=== PATIENT | female | born 1965 | race Caucasian/White ===

== ENCOUNTER 2018-03-25 15:52 | Emergency (ER) | payer SELFPAY ==
[~2018-03-25] VITALS: Ht 160 cm; Wt 75.5 kg
[~2018-03-25 15:52] MED LIST: FLEXERIL10 MG PO; LORTAB 5/500 501 TAB PO; NO HOME MEDICATIONS
[2018-03-25 15:55] VITALS: TEMP 98.2
[2018-03-25] MEDS ORDERED: VOLTAREN 75 DR75 MG PO (17:42)
[2018-03-25 18:09] VITALS: BP 145/91; PULSE 58
== END 2018-03-25 18:10 | disposition home or self-care (01) ==
LOC: COL.ER 15:52
DX: S46.012A Strain of muscle(s) and tendon(s) of the rotator cuff of left shoulder, initial encounter (principal); X50.0XXA Overexertion from strenuous movement or load, initial encounter; Y92.009 Unspecified place in unspecified non-institutional (private) residence as the place of occurrence of the external cause

== ENCOUNTER 2019-03-30 15:48 | Emergency (ER) | payer OTHER ==
[~2019-03-30] VITALS: Ht 160 cm; Wt 73.2 kg
[~2019-03-30 15:48] MED LIST changes: +VOLTAREN 75 DR75 MG PO
[2019-03-30 20:15] VITALS: BP 126/71; PULSE 74
== END 2019-03-30 20:24 | disposition home or self-care (01) ==
LOC: COL.ER 15:48
DX: J10.1 Influenza due to other identified influenza virus with other respiratory manifestations (principal); R06.4 Hyperventilation
CPT/HCPCS: J2060; J2250; J3010; J7030

== ENCOUNTER 2021-11-21 10:31 | Day surgery (SDC) | payer BC ==
[~2021-11-21] VITALS: Ht 160 cm; Wt 76.1 kg
[2021-11-21 11:17] VITALS: BP 132/74; PULSE 60; TEMP 97.4
[2021-11-21 12:20] VITALS: BP 123/80; PULSE 65; TEMP 96.9
--- NOTE | 2021-11-21 12:30 | NUR ---
1220 - PT arrives from procedure drowsy but oriented; PT assisted by RN to bedside before ambulating 2:1 w/ RN from cart to chair, daughter is assisted with translating. Monitors applied and VSS. Warm blankets provided. Verbal room report obtained. DR hyde in the room to provide report to RN and daughter. PT denies pain and nausea; snack and drink provided. Call clarke within reach if needed. Non-slip socks remain on. Will monitor per intervals.
[2021-11-21 12:35] VITALS: BP 140/88; PULSE 61
--- NOTE | 2021-11-21 12:39 | NUR ---
1235 - Vitals obtained. S02 was low, warm blanket applied to hand; S02 at 99% on room air. PT has finished snack and drink; and expressed desire to be discharged. Daughter remains present and is assisting with translating per PT request. Call clarke remains within reach if needed.
[2021-11-21 12:50] VITALS: BP 145/88; PULSE 57
--- NOTE | 2021-11-21 12:56 | NUR ---
1250 - Vitals obtained. PT states she feels "a little dizzy" ; IVF continue at titrated. PT denies pain/nasuea and call clarke remains within reach if needed.
--- NOTE | 2021-11-21 13:00 | NUR ---
1300 - PT states dizziness has subsided and expressed desire to be discharged. Call clarke remains within reach if needed. Denies pain/nausea and lightheadedness.
--- NOTE | 2021-11-21 13:00 | NUR ---
1300 - PT states dizziness has subsided and expressed desire to be discharged. Call clarke remains within reach if needed. Denies pain/nausea and lightheadedness.
[2021-11-21 13:05] VITALS: BP 140/78; PULSE 56
--- NOTE | 2021-11-21 13:16 | NUR ---
1305 - VSS. Monitors and IV discontinued. Catheter tip intact and pressure bandages applied. NO redness or swelling noted. DC instructions and educational material reviewed w/ PT who verbalized understanding and signed the related paperwork. Questions answered to PT satisfaction; information provided in taiwanese and liberian. PT refused RN assistance changing, however, daughter remains present and states will assist if needed. Call clarke within reach if needed and non-slip socks remain on.
--- NOTE | 2021-11-21 13:16 | NUR ---
1305 - VSS. Monitors and IV discontinued. Catheter tip intact and pressure bandages applied. NO redness or swelling noted. DC instructions and educational material reviewed w/ PT who verbalized understanding and signed the related paperwork. Questions answered to PT satisfaction; information provided in finnish and panamanian. PT refused RN assistance changing, however, daughter remains present and states will assist if needed. Call clarke within reach if needed and non-slip socks remain on.
--- NOTE | 2021-11-21 13:29 | NUR ---
1325 - PT dismissed from endo via wheelchair to the PT entrence by Susan COOL. PT has DC packet and personal belonings, and was transferred into the care of her daughter, who is driving private van.
== END 2021-11-21 13:30 | disposition home or self-care (01) ==
LOC: SDCO 10:31
DX: Z12.11 Encounter for screening for malignant neoplasm of colon (principal); D12.0 Benign neoplasm of cecum; E66.9 Obesity, unspecified; Z68.30 Body mass index [BMI] 30.0-30.9, adult
CPT/HCPCS: J2704; J7030

== ENCOUNTER → 2022-06-17 | Outpatient (CLI) | payer BC | LOC: MC.RAD 14:45 | DX: Z12.31 Encounter for screening mammogram for malignant neoplasm of breast (principal); R92.0 Mammographic microcalcification found on diagnostic imaging of breast; N64.89 Other specified disorders of breast ==

== ENCOUNTER → 2022-11-12 | Outpatient (CLI) | payer BC ==
[2022-11-12 15:05] LABS: BASO % 0.2 % (0.0-2.0); GRAN # 3.9 K/mm3 (1.4-6.5); GRAN % 69.7 % (42.2-75.2); HEMATOCRIT 21.2 % (37.0-47.0); HEMOGLOBIN 7.3 g/dl (12.5-16.0); LYMPH # 1.1 K/mm3 (1.2-3.4); LYMPH % 19.7 % (20.0-51.0); MEAN CELL VOLUME 89 fl (80.0-100.0); MEAN CORPUSCULAR HEMOGLOBIN 31 pg (27-31); MEAN CORPUSCULAR HGB CONC 34 g/dl (33.0-37.0); MONO # 0.5 K/mm3 (0.1-0.6); MONO % 9.7 % (1.7-9.3); PLATELET COUNT 108 K/mm3 (130-400); RED BLOOD COUNT 2.38 M/mm3 (4.10-5.30); REDCELL DISTRIBUTION WIDTH-CV 19.2 % (11.5-14.5)
[2022-11-12 15:19] LABS: ALBUMIN 3.6 gm/dL (3.5-5.0); BILIRUBIN,TOTAL 0.6 mg/dL (0.2-1.2); CALCIUM 8.7 mg/dL (8.4-10.2); CREATININE, serum 0.83 mg/dL (0.57-1.11); POTASSIUM 3.4 mmol/L (3.5-4.5); TOTAL PROTEIN 6.3 gm/dL (6.2-8.1)
== END ==
LOC: COL.LAB 14:25
PROVIDERS: Internal Medicine
DX: C50.412 Malignant neoplasm of upper-outer quadrant of left female breast (principal); Z17.0 Estrogen receptor positive status [ER+]; R53.83 Other fatigue